=== PATIENT | female | born 1995 | race American Indian/Alaskan Native ===

== ENCOUNTER 2016-07-20 01:30 | Outpatient (CLI) | payer MEDICAID ==
[2016-07-20 01:49] VITALS: BP 95/62
== END 2016-07-20 03:30 | disposition home or self-care (01) ==
LOC: TRG 01:30
PROVIDERS: ATTEND Obstetrics & Gynecology
DX: Z34.90 Encounter for supervision of normal pregnancy, unspecified, unspecified trimester (principal); Z3A.00 Weeks of gestation of pregnancy not specified

== ENCOUNTER 2018-08-10 10:09 | Emergency (ER) | payer MEDICAID ==
[2018-08-10 10:17] VITALS: BP 117/75
[2018-08-10 10:33] LABS: Bilirubin,Urine NEG (Negative); Blood,Urine NEG (Negative); Color,Urine Yellow (Yellow); Mucus,Urine 1+ /HPF; Protein,Urine <15 mg/dL mg/dL (Negative)
[2018-08-10 10:37] LABS: HCG Qualitative,Urine Negative (Negative)
--- NOTE | 2018-08-10 11:32 | XRay Report ---
ROUTINE CHEST, TWO VIEWS: HISTORY: Cough. The trachea, heart, mediastinal contour, lung graham and bony thorax are unremarkable. IMPRESSION: Unremarkable chest x-ray.
--- NOTE | 2018-08-10 12:23 | Emergency Department Report ---
ED General Adult HPI - General Chief complaint: Abdominal Pain Stated complaint: DIZZY/LIGHT HEAD/VOMITNG Time Seen by Provider: 08/10/18 10:53 Source: patient Mode of arrival: Ambulatory Limitations: No Limitations - History of Present Illness Initial comments: Mr. abrrera is a 22-year-old -[place] female who complains of nausea for the last 3 weeks with occasional posttussive vomiting. States she's been having a cough worsening for the last couple days, not associated with any fever, hemoptysis, hematemesis, hematochezia. No chest pain or palpitations. No presyncope. No headache. She reports no rashes. No new medications. No foreign travel. She's had a tubal ligation bilaterally and states that she is not worried of . Reports no sore throat. No nasal congestion. Radiation: non-radiation Improves with: none Worsens with: none Associated Symptoms: cough. denies: confusion, chest pain, loss of appetite, malaise, nausea/vomiting, rash, syncope, weakness Treatments Prior to Arrival: none - Related Data Previous Rx's Medication Instructions Recorded Last Taken Type ALBUTEROL Inhaler(NF) [VENTOLIN 1 puff IH Q4HRT #1 inha 08/10/18 Unknown Rx Inhaler(NF)] guaiFENesin/CODEINE [Robitussin AC] 5 ml PO Q6HR #120 ml 08/10/18 Unknown Rx Allergies Allergy/AdvReac Type Severity Reaction Status Date / Time No Known Allergies Allergy Verified 08/10/18 10:14 ED Review of Systems ROS: Stated complaint: DIZZY/LIGHT HEAD/VOMITNG Other details as noted in HPI Constitutional: denies: chills, fever Eyes: denies: eye pain, eye discharge, vision change ENT: denies: ear pain, throat pain Respiratory: denies: cough, shortness of breath, wheezing Cardiovascular: denies: chest pain, palpitations Endocrine: no symptoms reported Gastrointestinal: denies: abdominal pain, nausea, diarrhea Genitourinary: denies: urgency, dysuria, discharge Musculoskeletal: denies: back pain, joint swelling, arthralgia Skin: denies: rash, lesions Neurological: denies: headache, weakness, paresthesias Psychiatric: denies: anxiety, depression Hematological/Lymphatic: denies: easy bleeding, easy bruising ED Past Medical Hx - Past Medical History Hx Hypertension: No Hx Diabetes: No Hx Deep Vein Thrombosis: No Hx Renal Disease: No Hx Sickle Cell Disease: No Hx Seizures: No Hx Asthma: No Hx HIV: No - Social History Smoking Status: Never Smoker Substance Use Type: None - Medications Home Medications: Home Medications Medication Instructions Recorded Confirmed Last Taken Type ALBUTEROL Inhaler(NF) [VENTOLIN 1 puff IH Q4HRT #1 inha 08/10/18 Unknown Rx Inhaler(NF)] guaiFENesin/CODEINE [Robitussin AC] 5 ml PO Q6HR #120 ml 08/10/18 Unknown Rx ED Physical Exam - General Limitations: No Limitations General appearance: alert, in no apparent distress - Head Head exam: Present: atraumatic, normocephalic - Eye Eye exam: Present: normal appearance, PERRL, EOMI Pupils: Present: normal accommodation - ENT ENT exam: Present: normal exam, normal orophraynx, mucous membranes moist - Neck Neck exam: Present: normal inspection, full ROM. Absent: lymphadenopathy, thyromegaly - Respiratory Respiratory exam: Present: normal lung sounds bilaterally. Absent: respiratory distress, chest wall tenderness, accessory muscle use, decreased breath sounds - Cardiovascular Cardiovascular Exam: Present: regular rate, normal rhythm. Absent: systolic murmur, diastolic murmur, rubs, gallop - GI/Abdominal GI/Abdominal exam: Present: soft, normal bowel sounds - Extremities Exam Extremities exam: Present: normal inspection - Back Exam Back exam: Present: normal inspection - Neurological Exam Neurological exam: Present: alert, oriented X3 - Psychiatric Psychiatric exam: Present: normal affect, normal mood - Skin Skin exam: Present: warm, dry, intact, normal color. Absent: rash ED Course Vital Signs 08/10/18 10:14 Temperature 98.4 F Pulse Rate 79 Respiratory 18 Rate Blood Pressure 117/75 O2 Sat by Pulse 100 Oximetry Critical care attestation.: If time is entered above; I have spent that time in minutes in the direct care of this critically ill patient, excluding procedure time. ED Disposition Clinical Impression: Cough, Nausea Disposition: DC-01 TO HOME OR SELFCARE Is pt being admited?: No Does the pt Need Aspirin: No Condition: Stable Instructions: Abdominal Pain (ED), Cold Symptoms (ED), Acute Cough (ED) Prescriptions: ALBUTEROL Inhaler(NF) [VENTOLIN Inhaler(NF)] 1 puff IH Q4HRT #1 inha guaiFENesin/CODEINE [Robitussin AC] 5 ml PO Q6HR #120 ml Referrals: [facility] [Provider Group] - 3-5 Days Forms: Work/School Release Form(ED)
== END 2018-08-10 14:11 | disposition home or self-care (01) ==
LOC: ED 10:09
DX: R05 Cough (principal); R11.2 Nausea with vomiting, unspecified; Z98.51 Tubal ligation status
CPT/HCPCS: 71046; 81001; 81025; 99283

== ENCOUNTER 2019-11-29 10:48 | Outpatient (CLI) | payer SELFPAY ==
[2019-11-29 11:32] VITALS: BP 157/89
--- NOTE | 2019-11-29 12:48 | Event Note ---
Date: 11/29/19 Patient states she has been receiving care at the [facility]. She reports u/s on 10/19/19 showed she was 18 or 19 weeks. unable to palpate fundus for locate fht with doppler. u/s does not show a gravid uterus. no IUP noted. Patient state she had u/s at [facility] 10/18 that showed her to be either 18 or 19 weeks. advised patient she needs to f/u in ED for further testing.
--- NOTE | 2019-11-29 14:10 | Ultrasound Report ---
US OB <= 14 weeks fetus INDICATION / CLINICAL INFORMATION: Vaginal bleeding. COMPARISON: None available. FINDINGS: Uterus measures 11.8 x 5.6 x 6.3 cm. The endometrial echo complex measures 8 mm. No endometrial fluid collections are seen. Ovaries are normal in size without focal lesion. No adnexal lesions, no free fluid. IMPRESSION: 1. No sonographic evidence of intrauterine . No adnexal lesions or free fluid. Signer Name: Zion Reyes MD Signed: 11/29/2019 2:05 PM Workstation Name: [id number]
== END 2019-11-29 13:06 | disposition home or self-care (01) ==
LOC: TRG 10:48 → APU 10:56 → TRG 13:06
PROVIDERS: ATTEND Obstetrics & Gynecology
DX: O03.9 Complete or unspecified spontaneous abortion without complication (principal)
CPT/HCPCS: 36415; 76801; 84702